=== PATIENT | female | born 1980 | race Caucasian/White ===

== ENCOUNTER 2018-08-24 01:40 | Emergency (ER) | payer MEDICARE, OTHER ==
[~2018-08-24] VITALS: Ht 160 cm; Wt 73.5 kg
[~2018-08-24 01:40] MED LIST: ANASPAZ0.125 MG PO; BACLOFEN10 MG PO; BENZTROPINE MESY1 MG PO; CIPRO500 MG PO; DICYCLOMINE HCL20 MG PO; DIVALPROEX SOD500 M1 PO; GAS-X125 MG PO; LITHIUM CARBON300 MG PO; LORAZEPAM1 MG PO; MELATONIN1 MG PO; OLANZAPINE10 MG PO; OMEPRAZOLE20 MG PO; PROPRANOLOL HCL10 MG PO; ROPINIROLE HCL3 MG PO; SPIRONOLACTONE25 MG PO; STOOL SOFTENER100 M1 PO
--- OUTSIDE RECORDS SUMMARY | 2018-08-24 01:42 | XMS ---
PreManage Notification: ASHLEY DAVIS Security Director [employer] Events No recent Security Events currently on file CRITERIA MET - [facility] Guidelines CARE PROVIDERS Aislinn Porter Community Health Worker 01/10/2018-Current PHONE: [phone] LAMBERTO MIGUEL Physician Flattening Machine Operator Cecy Gannon PHONE: [phone] [facility] Current PHONE: [phone] Guidelines Source: [facility] Guidelines Date: 11/23/2017 Care Coordination: Currently working with [facility] regarding mental health concerns.\T\nbsp; Redirect her or contact [facility] for mental health concerns. [phone] Richard VISIT COUNT (12 MO.) 2 [facility] 1 GABRIELLE Mendez TOTAL 3 NOTE: Visits indicate total known visits. ED/UCC VISIT TRACKING (12 MO.) 08/24/2018 01:41 [facility] [place] TYPE: Emergency COMPLAINT: - ABD PAIN, CONSTIPATION 01/10/2018 11:24 [facility] [place] TYPE: Emergency COMPLAINT: - MH 12/26/2017 11:57 [facility] [place] TYPE: Emergency COMPLAINT: - MENTAL HEALTH DIAGNOSES: - Suicidal ideations - Bipolar disorder, current episode manic without psychotic features, moderate - Nicotine dependence, cigarettes, uncomplicated INPATIENT VISIT TRACKING (12 MO.) No inpatient visits to display in this time frame [email or web address]
[2018-08-24] MEDS ORDERED: ABILIFY MAINTE400 M1 IM (01:52)
[2018-08-24] MEDS ORDERED: CHLORPROMAZINE50 MG PO (01:52)
== END 2018-08-24 02:33 | disposition home or self-care (01) ==
LOC: ED 01:40
DX: K59.00 Constipation, unspecified (principal); F17.200 Nicotine dependence, unspecified, uncomplicated; K21.9 Gastro-esophageal reflux disease without esophagitis; F31.9 Bipolar disorder, unspecified; F41.9 Anxiety disorder, unspecified; Z88.1 Allergy status to other antibiotic agents; Z88.2 Allergy status to sulfonamides; Z90.49 Acquired absence of other specified parts of digestive tract; Z79.899 Other long term (current) drug therapy
CPT/HCPCS: 99283